=== PATIENT | female | born 1945 | race Caucasian/White ===

== ENCOUNTER 2017-12-26 07:07 | Day surgery (SDC) | payer MEDICARE, BC ==
[2017-12-25 14:11] LABS: HEMOGLOBIN 14.7 g/dL (12-16); MCH 30.1 pg (26.0-34.0); MCHC 33.4 g/dL (31.0-37.0); MEAN PLATELET VOLUME 9.9 fL (7.4-10.4); RBC 4.89 10x6/uL (4.00-5.40); RDW 12.9 % (11.5-14.5)
[~2017-12-26] VITALS: Ht 172.7 cm; Wt 87.1 kg
--- NOTE | ~2017-12-26 | OP ---
PATIENT NAME: FIONA RENO MEDICAL RECORD: [id number] :47 LOCATION:D.OPS ADMISSION DATE: SURGEON: KENNY SOLITARIO DPM DATE OF OPERATION: 12/26/2017 PREOPERATIVE DIAGNOSES: 1. Posterior calcaneal spur, right foot. 2. Achilles disruption, right foot. 3. Hallux abductovalgus, right foot. 4. Instability, right first met cuneiform joint. POSTOPERATIVE DIAGNOSES: 1. Posterior calcaneal spur, right foot. 2. Achilles disruption, right foot. 3. Hallux abductovalgus, right foot. 4. Instability, right first met cuneiform joint. PROCEDURES: 1. Right gastroc recession. 2. Right calcaneal spur removal. 3. Right Achilles tendon repair. 4. Right Beaulieu bunionectomy. 5. Right first met cuneiform joint fusion. ANESTHESIA: Preoperative popliteal block per the anesthesia department as well as intraoperative general anesthesia as well as infiltration of 10 cc of 1:1 mix of lidocaine and Marcaine plain on the medial anterior ankle area along the coursing of the saphenous nerve. HEMOSTASIS: Right thigh tourniquet at 350 mmHg. PREOPERATIVE DETAILS: The patient was taken to the OR and placed on the operating table in a position where her left shoulder was down, right shoulder was up. The right extremity was then prepped and draped in the usual aseptic technique followed by exsanguination of extremity and inflation of tourniquet. PROCEDURE #1: Gastroc recession, right leg. A 15-blade was used to create a 4-cm linear incision over the posterior aspect of the gastroc aponeurosis. The incision was deepened down bluntly through subcutaneous tissue to the peritenon. A linear incision was made in the peritenon freeing the peritenon from the aponeurosis. At this time, the foot held in dorsiflexion, knee extended, the cut was made through the aponeurosis with excellent release of the tight posterior contracture. Once this was performed, the wound was flushed and the skin was closed with skin sonny. PROCEDURE #2: Calcaneal spur removal, right foot. A 15 blade was used to create an incision on the posterior aspect of the right heel overlying the Achilles tendon. The incision was deepened down through subcutaneous tissue to the Achilles tendon itself. A linear incision was made over to the peritenon exposing the Achilles tendon which was then freed from the posterior aspect of the calcaneus. There was noted to be some longitudinal striations of the Achilles tendon as well as some bursitis over the top of the Achilles tendon at its insertion. Once the Achilles tendon was freed from the posterior aspect of the heel, a sagittal saw was used to resect the significant spurring that was on the back of the heel. The area was flushed with saline at this time. OPERATIVE REPORT [id number] FIONA RENO PROCEDURE #3: Right Achilles tendon repair. Achilles tendon repair, right foot was performed utilizing the incision as described in #2 and utilizing the suture bridge technique, the Achilles tendon was repaired to the calcaneus with an excellent fixation allowing a dorsiflexion at the ankle joint without inhibiting the repair. The wound was flushed and the peritenon and deep tissue reapproximated with 2-0 Vicryl, the subcutaneous tissue with 4-0 Rapide and the skin was closed with 4-0 Rapide in a subcuticular technique followed by Dermabond. At this time, the patient was rotated on the operating table to a supine position. PROCEDURE #4: Beaulieu bunionectomy, right foot. The incision was made from the dorsal aspect of the medial cuneiform distally to the base of the proximal phalanx of the hallux. The incision was deepened down through subcutaneous tissue. The first MPJ was required and inverted capsulotomy was performed. The medial capsular flap was reflected and the head of the first metatarsal was delivered. A sagittal saw was used to resect the medial eminence. Attention was then directed to the first interspace where a lateral release was performed. Good clinical reduction of the lateral contracture was verified. PROCEDURE #5: First met cuneiform joint fusion: Utilizing the incision as described in #4, dissection was carried down to the first met cuneiform joint. A sagittal saw was then used to resect the joint. Temporary fixation was placed in a 5-hole plate with 1 hole screw was placed across the fusion site. C-arm was used to verify good alignment as well as placement of the hardware, excellent rigid internal fixation was noted. The wound was flushed. The deep tissue was reapproximated with 2-0 Vicryl. The joint capsule was repaired with 2-0 Vicryl. The subcutaneous tissue was reapproximated with 4-0 Rapide and the skin was closed with 4-0 Rapide in a subcuticular technique followed by Dermabond, Adaptic, 4 x 4, and Conform were used to dress all the wounds followed by application of a modified Peña compression dressing. Tourniquet was deflated. POSTOPERATIVE DETAILS: The patient tolerated the procedure well and left the OR with vital signs stable and vascular status at preoperative levels. The patient was transported to recovery per anesthesia. TRANSINT:[id number] Voice Confirmation ID: [id number] DOCUMENT ID: [id number] KENNY SOLITARIO DPM at 1150 CC: [id number] DICTATION DATE: 12/26/17 1142 LATEXER: 12/26/17 1232 [facility] 12/26/17 [facility] [address] [place] [address]
[~2017-12-26 07:07] MED LIST: ATIVAN0.5 MG PO; COREG6.25 MG PO; COZAAR25 MG PO; CYCLOBENZAPRINE10 MG PO; CYMBALTA60 MG PO; HYDROCODON-ACE1 EAC7 PO; NEURONTIN 300300 MG PO; ROPINIROLE HCL2 MG PO; SINEQUAN50 MG PO; VISTARIL25 MG PO; VITAMIN B-1000 MCG/M IM; ZOCOR40 MG PO
[2017-12-26 08:23] VITALS: BP 105/62; Ht 172.7 cm; Wt 87.1 kg
== END 2017-12-26 14:20 | disposition home or self-care (01) ==
LOC: D.OPS 07:07 → D.PAN 09:30 → D.OPS 14:20
PROVIDERS: Anesthesiology
DX: M77.31 Calcaneal spur, right foot (principal); M76.61 Achilles tendinitis, right leg; M20.11 Hallux valgus (acquired), right foot; M25.374 Other instability, right foot; I10 Essential (primary) hypertension; Z01.812 Encounter for preprocedural laboratory examination